=== PATIENT | male | born 1985 | race Caucasian/White ===

== ENCOUNTER 2024-07-09 14:20 | Emergency (ER) | payer OTHER ==
[~2024-07-09] VITALS: Ht 177.8 cm; Wt 93.4 kg
[2024-07-09 17:03] VITALS: BP 122/76; TEMP 97.3; O2SAT 98
[2024-07-09] MEDS ORDERED: IBUPROFEN 600MG TAB PO ONE (19:40)
[2024-07-09] MEDS ORDERED: ELIQ5TAB PO (19:54)
[2024-07-09] MEDS: APIXABAN 5 MG TAB (ELIQUIS) PO ONE (19:59)
== END 2024-07-09 20:06 | disposition home or self-care (01) ==
LOC: M ED 14:20
DX: I82.812 Embolism and thrombosis of superficial veins of left lower extremity (principal); F17.200 Nicotine dependence, unspecified, uncomplicated; Z79.01 Long term (current) use of anticoagulants